=== PATIENT | female | born 1970 | race Two or more races ===

== ENCOUNTER 2020-08-14 06:00 | Day surgery (SDC) | payer OTHER ==
[~2020-08-14 06:00] MED LIST: ENBREL50 MG/M1; FASENRA PE30 MG/1 ML SUBCUTANEO; SYNTHROID75 MCG; VOLTAREN100 GM PO
== END 2020-08-14 12:45 | disposition home or self-care (01) ==
LOC: CIR.AMB 06:00
PROVIDERS: ATTEND Orthopaedic Surgery Hand Surgery
DX: M18.11 Unilateral primary osteoarthritis of first carpometacarpal joint, right hand (principal); Z20.828 Contact with and (suspected) exposure to other viral communicable diseases